=== PATIENT | male | born 1995 | race Caucasian/White ===

== ENCOUNTER 2020-02-21 19:26 | Emergency (ER) | payer SELFPAY ==
[~2020-02-21] VITALS: Ht 180.3 cm; Wt 117.9 kg
[2020-02-21 19:34] VITALS: BP 140/62
--- NOTE | 2020-02-21 19:41 | NUR ---
PT AMBULATED TO THE LOBBY TO A/W BED
--- NOTE | 2020-02-21 20:50 | NUR ---
PT AMBULATED TO ER BED 11 W/ STEADY GAIT.
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
--- NOTE | 2020-02-21 21:17 | NUR ---
ERMD AT BEDSIDE FOR EVALUATION.
[2020-02-21] MEDS ORDERED: ACETAMINOPHEN 325 MG TAB PO ONE (21:25)
--- NOTE | 2020-02-21 21:32 | NUR ---
PT REFUSED ACETAMINOPHEN 650 MG MEDICATION ADMINISTRATION, ERMD MADE AWARE.
--- NOTE | 2020-02-21 21:35 | NUR ---
pt taken to xray via w/c
--- NOTE | 2020-02-21 21:49 | NUR ---
PT RETURNED FROM XRAY VIA W/C.
--- NOTE | 2020-02-21 22:22 | NUR ---
PT AMBULATED TO RESTROOM W/ STEADY GAIT.
--- NOTE | 2020-02-21 22:29 | NUR ---
PT AMBULATED TO ERBED 11 W/ STEADY GAIT.
--- NOTE | 2020-02-21 22:30 | NUR ---
ERMD AT BEDSIDE FOR RE EVALUATION.
--- NOTE | 2020-02-21 23:16 | NUR ---
DR. GARCIA AT BEDSIDE FOR RE EVALUATION.
[2020-02-21] MEDS ORDERED: IBUPROFEN 600 MG TAB PO ONE (23:25)
--- NOTE | 2020-02-21 23:34 | NUR ---
PT TAKEN TO CT VIA W/C
--- NOTE | 2020-02-21 23:50 | NUR ---
PT RETURNED FROM CT VIA W/C
[2020-02-22 01:00] VITALS: BP 112/78
--- NOTE | 2020-02-22 01:00 | NUR ---
Patient discharged with v/s stable. Written and verbal after care instructions given and explained. Patient alert, oriented and verbalized understanding of instructions. Ambulatory with steady gait. All questions addressed prior to discharge. ID band removed. Patient advised to follow up with PMD. Rx of FLEXARIL, MOTRIN given. Patient educated on indication of medication including possible reaction and side effects. Opportunity to ask questions provided and answered.
== END 2020-02-22 01:00 | disposition home or self-care (01) ==
LOC: MED 19:26
DX: S09.90XA Unspecified injury of head, initial encounter (principal); R07.81 Pleurodynia; Z85.9 Personal history of malignant neoplasm, unspecified; Z71.6 Tobacco abuse counseling; V29.40XA Motorcycle driver injured in collision with unspecified motor vehicles in traffic accident, initial encounter; Y93.89 Activity, other specified; Y92.89 Other specified places as the place of occurrence of the external cause; Y99.8 Other external cause status
CPT/HCPCS: 70450; 71111; 72125; 99285